=== PATIENT | female | born 1970 | race Caucasian/White ===

== ENCOUNTER 2016-09-11 15:33 | Emergency (ER) | payer BC ==
--- NOTE | 2016-09-11 16:13 | EDM.PDOC ---
ED HPI Trauma - General Chief Complaint: Upper Extremity Injury/Pain Stated Complaint: BACK AND ARM PAIN Time Seen by Provider: 09/11/16 15:52 Source: Reports: Patient History Limitations: Reports: No limitations - History of Present Illness INITIAL COMMENTS - FREE TEXT/NARRATIVE: Presents reporting a 2 week history of left shoulder pain the patient states that she did not injure her neck but believes she has a pinched nerve in her neck as she gets some zinger pains that shoot down her left arm she characterizes them as stabbing or burning. She states they are not too bad at night when she is laying flat but otherwise during the day they bother her quite a bit. She did see someone at the walk-in clinic and was given Flexeril and diclofenac. She has been seeing a chiropractor with minimal relief but has another appointment tomorrow morning. She has an appointment with her primary care provider on Wednesday, September 14, 2016. Allergies/ADRs: Allergies fluoxetine [From Prozac] Allergy (Verified 09/11/16 15:43) Hives grass pollen Allergy (Verified 09/11/16 15:43) Shortness of Breath weed pollen Allergy (Verified 09/11/16 15:43) Shortness of Breath trees Allergy (Uncoded 09/11/16 15:43) Shortness of Breath Home Medications: Ambulatory Orders Albuterol [IJD: Ventolin HFA] 2 puff INH .TWICE DAILY PRN 07/15/16 [Confirmed ] Azelastine HCl [Astepro] 2 inhalation RHIANNON BID 07/15/16 [Confirmed 09/11/16] Budesonide/Formoterol Fumarate [Symbicort 160-4.5 Mcg Inhaler] 2 puff IH BID 07/31 [Confirmed 09/11/16] Cetirizine HCl [Zyrtec] 10 mg PO DAILY 07/15/16 [Confirmed 09/11/16] Montelukast [Singulair] 10 mg PO BEDTIME 07/15/16 [Confirmed 09/11/16] Cyclobenzaprine [Flexeril] 10 mg PO TID 09/11/16 [Confirmed 09/11/16] Diclofenac Sodium [IJD: Diclofenac Sodium] 75 mg PO BID 09/11/16 [Confirmed ] Past Medical History HEENT History: Reports: Allergic rhinitis, Other (see below) Other HEENT History: Rhinitis Cardiovascular History: Reports: None Respiratory History: Reports: Asthma, Bronchitis, recurrent, Sleep apnea Gastrointestinal History: Reports: None Genitourinary History: Reports: None 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 Musculoskeletal History: Reports: None Neurological History: Reports: Head trauma Psychiatric History: Reports: Depression Endocrine/Metabolic History: Reports: Obesity/BMI 30+ Hematologic History: Reports: None Immunologic History: Reports: None Oncologic (Cancer) History: Reports: None Dermatologic History: Reports: None - Infectious Disease History Infectious Disease History: Reports: None - Past Surgical History Head Surgeries/Procedures: Reports: None HEENT Surgical History: Reports: Tonsillectomy Social & Family History - Family History Cardiac: Reports: CAD, [place] Endocrine/Metabolic: Reports: Diabetes, type II - Tobacco Use Smoking Status *Q: Never Smoker Years of Tobacco use: 15 Packs/Tins Daily: 0.5 Used Tobacco, but Quit: No Second Hand Smoke Exposure: No - Caffeine Use Caffeine Use: Reports: Coffee - Recreational Drug Use Recreational Drug Use: No Review of Systems - Review of Systems Review Of Systems: ROS reveals no pertinent complaints other than HPI. Trauma Exam - Physical Exam Exam: See Below General Appearance: Reports: alert, moderate distress (tearful due to shooting pains) Head: Reports: atraumatic, normocephalic Ears: Reports: normal external exam Nose: Reports: normal inspection Throat/Mouth: Reports: Normal inspection Neck: Reports: tender midline (Mild from C4-C5), other (Full range of motion without hesitation or limitation). Denies: painful range of motion, paraspinous muscle tender, stiff neck Respiratory Exam: Reports: no respiratory distress, lungs clear, normal breath sounds Cardiovascular: Reports: regular rate, rhythm, no murmur Back: Reports: full range of motion Extremities: Reports: no evidence of injury, normal range of motion, other ( Left shoulder, elbow and hand with full range of motion without hesitation or limitation. Shoulder without erythema, swelling, tenderness. CMS intact distally.) Neurologic: Reports: no motor/sensory deficits Skin: Reports: Normal color, Warm/dry Course - Vital Signs Last Recorded V/S: Last Vital Signs Temp 36.9 C 09/11/16 15:45 Pulse 98 09/11/16 15:45 Resp 18 09/11/16 15:45 BP 154/93 H 09/11/16 15:45 Pulse Ox 99 09/11/16 15:45 Departure - Departure Time of Disposition: 16:13 Disposition: Home, Self-Care 01 Condition: fair Clinical Impression: Radicular pain in left arm Forms: ED Department Discharge Additional Instructions: 1. followup with Dr. Patrick as previously scheduled on Saturday 2. warm or cool packs to the neck whichever feels better every 3-4 hours 3. Percocet every 4-6 hours as needed for pain. Do not drive or operate machinery with this medication 4. Valium 10 mg one at bedtime for relaxation and sleep. Do not take with Percocet. Do not drive or operate machinery with this medication 5. You may continue taking the cyclobenzaprine, which is a muscle relaxant, as previously prescribed. He may supplement the Percocet with diclofenac 3 times daily as previously prescribed.
== END 2016-09-11 16:32 | disposition home or self-care (01) ==
LOC: MW.ED 15:33
CPT/HCPCS: 93005; 99283

== ENCOUNTER → 2016-10-01 | Outpatient (CLI) | payer BC ==
[~2016-10-01] MED LIST: Gadobutrol 10 mMOL/10 ML SDV IVPUSH STA
--- NOTE | 2016-10-02 15:16 | MR ---
EXAM DATE: 10/01/16 PATIENT'S AGE: 45 Patient: BAKARI ASHLEY Facility: [place], [place] Site . Site : 1970 Study: MRI Spine Cervical [id number] 5:46:56 PM Ordering Physician: Finesse Castillo Final Report: INDICATION: Pain. Technique: Multiplanar multi sequence MR imaging of the cervical spine was performed with and without intravenous contrast. Comparison: None. Findings: Cervical vertebral bodies appear maintained in height and alignment. Reactive endplate changes are prominent at C6-7. Cervical spinal cord signal and caliber appears within normal limits. No abnormal spinal cord enhancement is seen. The craniovertebral junction is unremarkable. C2-3: An asymmetric left subarticular disk osteophyte complex is present without significant canal stenosis. There is mild left foraminal narrowing. C3-4: There is uncovertebral joint spurring without significant canal or foraminal narrowing. C4-5: A posterior disc osteophyte complex asymmetric to the left is present without significant canal stenosis. There is mild/moderate left foraminal narrowing. C5-6: A posterior disc osteophyte complex slightly asymmetric to the left contributes to mild canal stenosis, mild right foraminal narrowing and moderate left foraminal narrowing. C6-7: A posterior disc osteophyte complex asymmetric to the left contributes to moderate canal stenosis, mild right foraminal narrowing and moderate/severe left foraminal narrowing. C7-T1: A small posterior disc bulge is seen without significant canal or foraminal narrowing. Impression : 1. Multilevel degenerative changes are most pronounced at C5-6 and C6-7. 2. At C5-6, there is mild canal stenosis, mild right foraminal narrowing and moderate left foraminal narrowing. 3. At C6-7, there is moderate canal stenosis, mild right foraminal narrowing and moderate/severe left foraminal narrowing. 4. Cervical spinal cord signal and caliber appears within normal limits. Dictated by Deven Pinzon MD @ Oct 02 2016 10:48AM (Electronic Signature) Report Signed by Proxy and Original Signed Document filed in the Medical Record. ALYSSA
== END ==
LOC: MW.MRI 15:45
PROVIDERS: ATTEND Nurse Practitioner Adult Health
DX: M54.9 Dorsalgia, unspecified (principal); M48.02 Spinal stenosis, cervical region; R20.2 Paresthesia of skin
CPT/HCPCS: 72156; A9585

== ENCOUNTER 2017-02-14 18:29 | Observation (INO) | payer BC ==
[2017-02-14] MEDS ORDERED: Aspirin 81 MG Tab.Chew PO ONE (18:36)
[2017-02-14] MEDS ORDERED: Famotidine 20 MG/2 ML SDV IVPUSH ONE (18:36)
[2017-02-14] MEDS ORDERED: Ketorolac 30 MG/ML SDV IVPUSH ONE (18:36)
[2017-02-14] MEDS ORDERED: Sodium Chloride 0.9% 10 ML Syringe FLUSH PRN (18:36)
[2017-02-14] MEDS ORDERED: Sodium Chloride 0.9% 2.5 ML Syringe FLUSH PRN (18:36)
[2017-02-14] MEDS ORDERED: Alum Hydrox/Mag Hydrox/Simeth 15 ML, Metoclopramide 5 MG, Lidocaine 2% 5 ML PO ONE ×3 (18:36)
[2017-02-14] MEDS ORDERED: Nitroglycerin 2% Oint 1 GM UD Packet TOP ONE (18:36)
[2017-02-14 19:28] LABS: CHLORIDE,CL 106 mmol/L (98-110); SODIUM,NA 141 mmol/L (136-146)
--- NOTE | 2017-02-14 20:10 | EDM.PDOC ---
ED HPI GENERAL MEDICAL PROBLEM - General Chief Complaint: Chest Pain Stated Complaint: HBP/CHEST PAIN Time Seen by Provider: 02/14/17 18:50 Source of Information: Reports: Patient History Limitations: Reports: No Limitations - History of Present Illness INITIAL COMMENTS - FREE TEXT/NARRATIVE: History of present illness: [46-year-old female comes in complaining of chest pain intermittently getting worse over the course of the day. Patient indicates she had a transient episode of hypertension that was found when she went to a urgent care if you weeks ago she subsequently got home And has been taking her blood pressure and she is quite hypertensive 160s over 80s to 100s patient denies any radiation of pain and for nausea vomiting.] Review of systems: As per history of present illness and below otherwise all systems reviewed and negative. Past medical history: As per history of present illness and as reviewed below otherwise noncontributory. Surgical history: As per history of present illness and as reviewed below otherwise noncontributory. Social history: No reported history of drug or alcohol abuse. Family history: As per history of present illness and as reviewed below otherwise noncontributory. Physical exam: HEENT: Atraumatic, normocephalic, pupils reactive, negative for conjunctival pallor or scleral icterus, mucous membranes moist, throat clear, neck supple, nontender, trachea midline. Lungs: Clear to auscultation, breath sounds equal bilaterally, chest nontender. Heart: S1S2, regular, negative for clicks, rubs, or JVD. Abdomen: Soft, nondistended, nontender. Negative for masses or hepatosplenomegaly. Negative for costovertebral tenderness. Pelvis: Stable nontender. Genitourinary: Deferred. Rectal: Deferred. Extremities: Atraumatic, negative for cords or calf pain. Neurovascular unremarkable. Neuro: Awake, alert, oriented. Cranial nerves II through XII unremarkable. Cerebellum unremarkable. Motor and sensory unremarkable throughout. Exam nonfocal. Patient responded to nitroglycerin with cessation of chest pain as well as decreased blood pressure. Spoke with Dr. cardenas about admitting to observation status secondary to risk categories of numerous family members from cardiac sequelae a demise, and new onset hypertension that is symptomatic Diagnostics: [CBC, CMP, troponin, chest x-ray] Therapeutics: [Chest pain protocol] Impression: [Atypical chest pain, hypertension] Plan: [Admit to obs] Definitive disposition and diagnosis as appropriate pending reevaluation and review of above. Middle Chest Pain Score (Numeric/FACES): 9 - Related Data Allergies Allergy/AdvReac Type Severity Reaction Status Date / Time fluoxetine [From Prozac] Allergy Hives Verified 09/11/16 15:43 grass pollen Allergy Shortness Verified 09/11/16 15:43 of Breath weed pollen Allergy Shortness Verified 09/11/16 15:43 of Breath trees Allergy Shortness Uncoded 09/11/16 15:43 of Breath Home Meds: Home Meds Albuterol [IJD: Ventolin HFA] 2 puff INH .TWICE DAILY PRN 07/15/16 [History] Azelastine HCl [Astepro] 2 inhalation RHIANNON BID 07/15/16 [History] Budesonide/Formoterol Fumarate [Symbicort 160-4.5 Mcg Inhaler] 2 puff IH BID 07/31 [History] Cetirizine HCl [Zyrtec] 10 mg PO DAILY 07/15/16 [History] Montelukast [Singulair] 10 mg PO BEDTIME 07/15/16 [History] Allergy Shot WEEKLY 02/14/17 [History] Esomeprazole [NexIUM] 40 mg DAILY 02/14/17 [History] Past Medical History HEENT History: Reports: Allergic Rhinitis, Other (See Below) Other HEENT History: Rhinitis Cardiovascular History: Reports: None Respiratory History: Reports: Asthma, Bronchitis, Recurrent, Sleep Apnea Gastrointestinal History: Reports: None Genitourinary History: Reports: None 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 Musculoskeletal History: Reports: None Neurological History: Reports: Head Trauma Psychiatric History: Reports: Depression Endocrine/Metabolic History: Reports: Obesity/BMI 30+ Hematologic History: Reports: None Immunologic History: Reports: None Oncologic (Cancer) History: Reports: None Dermatologic History: Reports: None - Infectious Disease History Infectious Disease History: Reports: Chicken Pox - Past Surgical History Head Surgeries/Procedures: Reports: None Social & Family History - Family History Cardiac: Reports: CAD, [place] Endocrine/Metabolic: Reports: None - Tobacco Use Smoking Status *Q: Never Smoker Years of Tobacco use: 15 Packs/Tins Daily: 0.5 Used Tobacco, but Quit: No Second Hand Smoke Exposure: No - Caffeine Use Caffeine Use: Reports: Coffee - Recreational Drug Use Recreational Drug Use: No ED ROS GENERAL - Review of Systems Review Of Systems: See Below (See history of present illness) ED EXAM, GENERAL - Physical Exam Exam: See Below (See history of present illness) Course - Vital Signs Last Recorded V/S: Last Vital Signs Temp 36.6 C 02/14/17 18:41 Pulse 81 02/14/17 21:00 Resp 16 02/14/17 21:00 BP 135/51 L 02/14/17 21:00 Pulse Ox 96 02/14/17 21:00 - Orders/Labs/Meds Orders: Active Orders 24 hr Category Date Time Status Cardiac Monitoring [RC] . DIRECTED Care 02/14/17 18:36 Active EKG Documentation Completion [RC] STAT Care 02/14/17 18:37 Active Chest 1V Frontal [CR] Stat Exams 02/14/17 18:36 Taken Sodium Chloride 0.9% [Saline Flush] Med 02/14/17 18:36 Active 10 ml FLUSH ASDIRECTED PRN Sodium Chloride 0.9% [Saline Flush] Med 02/14/17 18:36 Active 2.5 ml FLUSH ASDIRECTED PRN Saline Lock Insert [OM.PC] Stat Oth 02/14/17 18:36 Ordered Medication Orders Sodium Chloride (Saline Flush) 10 ml FLUSH ASDIRECTED PRN PRN Reason: Keep Vein Open Last Admin: 02/14/17 19:05 Dose: 10 ml Sodium Chloride (Saline Flush) 2.5 ml FLUSH ASDIRECTED PRN PRN Reason: Keep Vein Open Last Admin: 02/14/17 19:05 Dose: 2.5 ml Labs: Laboratory Tests 02/14/17 02/14/17 02/14/17 Range/Units 18:57 18:57 18:57 WBC 6.60 (4.0-11.0) K/uL RBC 4.82 (4.30-5.90) M/uL Hgb 13.2 (12.0-16.0) g/dL Hct 39.9 (36.0-46.0) % MCV 82.8 (80.0-98.0) fL MCH 27.4 (27.0-32.0) pg MCHC 33.1 (31.0-37.0) g/dL RDW Std Deviation 43.6 (28.0-62.0) fl RDW Coeff of Arie 14 (11.0-15.0) % Plt Count 220 (150-400) K/uL MPV 10.10 (7.40-12.00) fL Neut % (Auto) 54.6 (48.0-80.0) % Lymph % (Auto) 33.8 (16.0-40.0) % [place] % (Auto) 8.5 (0.0-15.0) % Eos % (Auto) 2.6 (0.0-7.0) % Baso % (Auto) 0.5 (0.0-1.5) % Neut # (Auto) 3.6 (1.4-5.7) K/uL Lymph # (Auto) 2.2 (0.6-2.4) K/uL Gaston # (Auto) 0.6 (0.0-0.8) K/uL Eos # (Auto) 0.2 (0.0-0.7) K/uL Baso # (Auto) 0.0 (0.0-0.1) K/uL Nucleated RBC % 0.0 /100WBC Nucleated RBCs # 0 K/uL Sodium 141 (136-146) mmol/L Potassium 3.6 (3.5-5.1) mmol/L Chloride 106 (98-110) mmol/L Carbon Dioxide 25 (21-31) mmol/L BUN 14 (6.0-23.0) mg/dL Creatinine 0.8 (0.6-1.5) mg/dL Est Cr Clr Drug Dosing 81.38 mL/min Estimated GFR (MDRD) > 60.0 ml/min Glucose 101 (60-110) mg/dL Calcium 9.4 (8.8-10.8) mg/dL Total Bilirubin 0.4 (0.1-1.5) mg/dL AST 16 (5-40) IU/L ALT 21 (8-54) IU/L Alkaline Phosphatase 72 (40-150) Troponin I < 0.10 (0.0-0.29) NG/ML Total Protein 7.0 (6.0-8.0) g/dL Albumin 3.8 (3.5-5.0) g/dL Globulin 3.2 (2.0-3.5) g/dL Albumin/Globulin Ratio 1.2 L (1.3-2.8) Amylase 59 (10-90) U/L Lipase 18 (7-80) U/L Urine Color Urine Appearance Urine pH (5.0-8.0) Ur Specific [place] (1.001-1.035) Urine Protein (NEGATIVE) mg/dL Urine Glucose (UA) (NEGATIVE) mg/dL Urine Ketones (NEGATIVE) mg/dL Urine Occult Blood (NEGATIVE) Urine Nitrite (NEGATIVE) Urine Bilirubin (NEGATIVE) Urine Urobilinogen (<2.0) EU/dL Ur Leukocyte Esterase (NEGATIVE) Urine RBC (0-2/HPF) Urine WBC (0-5/HPF) Ur Epithelial Cells (NONE-FEW) Urine Bacteria (NEGATIVE) Urine HCG, Qual (NEGATIVE) 02/14/17 02/14/17 Range/Units 19:54 19:54 WBC (4.0-11.0) K/uL RBC (4.30-5.90) M/uL Hgb (12.0-16.0) g/dL Hct (36.0-46.0) % MCV (80.0-98.0) fL MCH (27.0-32.0) pg MCHC (31.0-37.0) g/dL RDW Std Deviation (28.0-62.0) fl RDW Coeff of Arie (11.0-15.0) % Plt Count (150-400) K/uL MPV (7.40-12.00) fL Neut % (Auto) (48.0-80.0) % Lymph % (Auto) (16.0-40.0) % [place] % (Auto) (0.0-15.0) % Eos % (Auto) (0.0-7.0) % Baso % (Auto) (0.0-1.5) % Neut # (Auto) (1.4-5.7) K/uL Lymph # (Auto) (0.6-2.4) K/uL [place]aston # (Auto) (0.0-0.8) K/uL Eos # (Auto) (0.0-0.7) K/uL Baso # (Auto) (0.0-0.1) K/uL Nucleated RBC % /100WBC Nucleated RBCs # K/uL Sodium (136-146) mmol/L Potassium (3.5-5.1) mmol/L Chloride (98-110) mmol/L Carbon Dioxide (21-31) mmol/L BUN (6.0-23.0) mg/dL Creatinine (0.6-1.5) mg/dL Est Cr Clr Drug Dosing mL/min Estimated GFR (MDRD) ml/min Glucose (60-110) mg/dL Calcium (8.8-10.8) mg/dL Total Bilirubin (0.1-1.5) mg/dL AST (5-40) IU/L ALT (8-54) IU/L Alkaline Phosphatase (40-150) Troponin I (0.0-0.29) NG/ML Total Protein (6.0-8.0) g/dL Albumin (3.5-5.0) g/dL Globulin (2.0-3.5) g/dL Albumin/Globulin Ratio (1.3-2.8) Amylase (10-90) U/L Lipase (7-80) U/L Urine Color YELLOW Urine Appearance CLEAR Urine pH 6.0 (5.0-8.0) Ur Specific [place] 1.025 (1.001-1.035) Urine Protein NEGATIVE (NEGATIVE) mg/dL Urine Glucose (UA) NEGATIVE (NEGATIVE) mg/dL Urine Ketones NEGATIVE (NEGATIVE) mg/dL Urine Occult Blood LARGE H (NEGATIVE) Urine Nitrite NEGATIVE (NEGATIVE) Urine Bilirubin NEGATIVE (NEGATIVE) Urine Urobilinogen 0.2 (<2.0) EU/dL Ur Leukocyte Esterase TRACE (NEGATIVE) Urine RBC 15-20 (0-2/HPF) Urine WBC 3-6 (0-5/HPF) Ur Epithelial Cells FEW (NONE-FEW) Urine Bacteria FEW (NEGATIVE) Urine HCG, Qual NEGATIVE (NEGATIVE) Meds: Medications Generic Name Dose Route Start Last Admin Trade Name Freq PRN Reason Stop Dose Admin Sodium Chloride 10 ml 02/14/17 18:36 02/14/17 19:05 Saline Flush FLUSH 10 ml ASDIRECTED PRN Administration Keep Vein Open Sodium Chloride 2.5 ml 02/14/17 18:36 02/14/17 19:05 Saline Flush FLUSH 2.5 ml ASDIRECTED PRN Administration Keep Vein Open Discontinued Medications Generic Name Dose Route Start Last Admin Trade Name Freq PRN Reason Stop Dose Admin Aspirin 324 mg 02/14/17 18:36 02/14/17 19:02 Aspirin PO 02/14/17 18:37 324 mg ONETIME ONE Administration Al Hydroxide/Mg Hydroxide 15 0 ml 02/14/17 18:36 02/14/17 19:02 ml/ Metoclopramide HCl 5 mg/ PO 02/14/17 18:37 1 each Lidocaine HCl 5 ml ONETIME ONE Administration Famotidine 20 mg 02/14/17 18:36 02/14/17 19:04 Pepcid IVPUSH 02/14/17 18:37 20 mg ONETIME ONE Administration Ketorolac Tromethamine 30 mg 02/14/17 18:36 02/14/17 19:04 Toradol IVPUSH 02/14/17 18:37 30 mg ONETIME ONE Administration Nitroglycerin 0.5 gm 02/14/17 18:36 02/14/17 19:03 Nitro-Bid 2% TOP 02/14/17 18:37 0.5 gm ONETIME ONE Administration Departure - Departure Time of Disposition: 21:03 Disposition: Refer to Observation Condition: Good Clinical Impression: Atypical chest pain Forms: ED Department Discharge - My Orders Last 24 Hours: My Active Orders 02/14/17 18:36 Cardiac Monitoring [RC] . DIRECTED Chest 1V Frontal [CR] Stat Sodium Chloride 0.9% [Saline Flush] 10 ml FLUSH ASDIRECTED PRN Sodium Chloride 0.9% [Saline Flush] 2.5 ml FLUSH ASDIRECTED PRN Saline Lock Insert [OM.PC] Stat 02/14/17 18:37 EKG Documentation Completion [RC] STAT - Assessment/Plan Last 24 Hours: My Active Orders 02/14/17 18:36 Cardiac Monitoring [RC] . DIRECTED Chest 1V Frontal [CR] Stat Sodium Chloride 0.9% [Saline Flush] 10 ml FLUSH ASDIRECTED PRN Sodium Chloride 0.9% [Saline Flush] 2.5 ml FLUSH ASDIRECTED PRN Saline Lock Insert [OM.PC] Stat 02/14/17 18:37 EKG Documentation Completion [RC] STAT
[2017-02-14] MEDS ORDERED: Aluminum Hydroxide/Magnesium Hydroxide/Simethicone Susp 30 ML Cup PO PRN (22:44)
[2017-02-14] MEDS ORDERED: Acetaminophen 325 MG Tab PO PRN (22:44)
[2017-02-14] MEDS ORDERED: Magnesium Hydroxide 400 MG/5 ML Susp 30 ML Cup PO PRN (22:44)
[2017-02-14] MEDS ORDERED: Albuterol 6.7 GM Inhaler INH PRN (23:03)
[2017-02-14] MEDS ORDERED: Nitroglycerin 0.4 MG Tab.SL SL PRN (23:05)
--- NOTE | 2017-02-14 23:15 | PCM.HP ---
H&P History of Present Illness - General Date of Service: 02/14/17 Admit Problem/Dx: Admission Diagnosis/Problem Admission Diagnosis/Problem Chest pain Source of Information: Patient, RN Notes Reviewed History Limitations: Reports: No Limitations - History of Present Illness Initial Comments - Free Text/Narative: 46 year old female with history of her father and grandfather having heart disease, had onset of several episodes of chest pain today. The pain was not provoked by activity. When one episode last ed longer, she came to the ER for evaluation. She has a history of GERD and a history of asthma. She was seen earlier this week at [facility] and was found to be hypertensive and was told to follow up with her usual Doctor, Dr. Patrick, who did not have immediate openings in his schedule this week. Her BP at that visit was approx 160/100. She has not been on hypertensive medication. She was given nitroglycerin and her chest pain and hypertension improved. She was referred to observation for follow up of the chest pain and hypertension, especially given her family history. Onset of Symptoms: Reports: Today Duration of Symptoms: Reports: Recurring Location: Reports: Chest Quality: Reports: Pressure Severity: Moderate Improves with: Reports: Medication Worsens with: Reports: None Associated Symptoms: Reports: Chest Pain. Denies: Cough, Diaphoresis, Nausea/ Vomiting Middle Chest Pain Score (Numeric/FACES): 0 - Related Data Allergies/Adverse Reactions: Allergies Allergy/AdvReac Type Severity Reaction Status Date / Time fluoxetine [From Prozac] Allergy Hives Verified 09/11/16 15:43 grass pollen Allergy Shortness Verified 09/11/16 15:43 of Breath weed pollen Allergy Shortness Verified 09/11/16 15:43 of Breath trees Allergy Shortness Uncoded 09/11/16 15:43 of Breath Home Medications: Home Meds Albuterol [IJD: Ventolin HFA] 2 puff INH Q4H PRN 07/15/16 [History] Azelastine HCl [Astepro] 2 inhalation RHIANNON BID 07/15/16 [History] Budesonide/Formoterol Fumarate [Symbicort 160-4.5 Mcg Inhaler] 2 puff IH BID 07/31 [History] Cetirizine HCl [Zyrtec] 10 mg PO BEDTIME 07/15/16 [History] Montelukast [Singulair] 10 mg PO BEDTIME 07/15/16 [History] Allergy Shot WEEKLY 02/14/17 [History] Esomeprazole [NexIUM] 40 mg DAILY 02/14/17 [History] Fluticasone Propionate [Flonase] 1 spr NASBOTH BID 02/14/17 [History] Past Medical History HEENT History: Reports: Allergic Rhinitis, Other (See Below) Other HEENT History: Rhinitis Cardiovascular History: Reports: None Respiratory History: Reports: Asthma, Bronchitis, Recurrent, Sleep Apnea Gastrointestinal History: Reports: GERD Genitourinary History: Reports: None FILTER CLEANER History: Reports: None Musculoskeletal History: Reports: None Neurological History: Reports: Head Trauma Psychiatric History: Reports: Depression Endocrine/Metabolic History: Reports: Obesity/BMI 30+ Hematologic History: Reports: None Immunologic History: Reports: None Oncologic (Cancer) History: Reports: None Dermatologic History: Reports: None - Infectious Disease History Infectious Disease History: Reports: Chicken Pox - Past Surgical History Head Surgeries/Procedures: Reports: None Social & Family History - Family History Cardiac: Reports: CAD, [place] Endocrine/Metabolic: Reports: None - Tobacco Use Smoking Status *Q: Never Smoker Years of Tobacco use: 15 Packs/Tins Daily: 0.5 Used Tobacco, but Quit: No Second Hand Smoke Exposure: No - Caffeine Use Caffeine Use: Reports: Coffee - Recreational Drug Use Recreational Drug Use: No H&P Review of Systems - Review of Systems: Review Of Systems: ROS reveals no pertinent complaints other than HPI. Exam - Exam Exam: See Below - Vital Signs Vital Signs: Last Vital Signs Temp 36.6 C 02/14/17 18:41 Pulse 81 02/14/17 21:00 Resp 16 02/14/17 21:00 BP 135/51 L 02/14/17 21:00 Pulse Ox 96 02/14/17 21:00 Weight: 122.47 kg - Exam Quality Assessment: DVT Prophylaxis General: Alert, Oriented, Cooperative HEENT: Conjunctiva Clear, EACs Clear, EOMI, Hearing Intact, Mucosa Moist & [place] , Nares Patent, Normal Nasal Septum, Posterior Pharynx Clear, Pupils Equal Neck: Supple, Trachea Midline Lungs: Clear to Auscultation, Normal Respiratory Effort Cardiovascular: Regular Rate, Regular Rhythm, Normal S1, Normal S2 GI/Abdominal Exam: Normal Bowel Sounds, Soft, Non-Tender, No Organomegaly, No Distention, No Mass Back Exam: Normal Inspection Extremities: Normal Inspection, Normal Range of Motion, Non-Tender, No Pedal Edema, Normal Capillary Refill. No: Teo's Sign Skin: Warm, Dry, Intact Neurological: Cranial Nerves Intact, Reflexes Equal Bilateral Neuro Extensive - Mental Status: Alert, Oriented x3, Normal Cognition, Memory Intact Neuro Extensive - Motor, Sensory, Reflexes: CN II-XII Intact, Normal Reflexes Psychiatric: Alert, Anxious - Patient Data Result Diagrams: 02/14/17 18:57 02/14/17 18:57 EKG INTERPRETATION Rhythm: NSR *Q Meaningful Use (ADM) - VTE *Q VTE Criteria *Q: - Stroke *Q Stroke Criteria *Q: - AMI *Q AMI Criteria *Q: - Problem List (1) GERD (gastroesophageal reflux disease) SNOMED Code(s): 793167349 ICD Code: K21.9 - GASTRO-ESOPHAGEAL REFLUX DISEASE WITHOUT ESOPHAGITIS Status: Acute Priority: Medium Current Visit: Yes Qualifiers: Esophagitis presence: without esophagitis Qualified Code(s): K21.9 - Gastro -esophageal reflux disease without esophagitis (2) Asthma SNOMED Code(s): 039067154 ICD Code: J45.909 - UNSPECIFIED ASTHMA, UNCOMPLICATED Status: Acute Current Visit: Yes Qualifiers: Asthma severity: moderate persistent Asthma complication type: uncomplicated Qualified Code(s): J45.40 - Moderate persistent asthma, uncomplicated (3) Atypical chest pain SNOMED Code(s): 401808845 ICD Code: R07.89 - OTHER CHEST PAIN Status: Acute Priority: High Current Visit: Yes Onset Date: 02/14/17 Problem List Initiated/Reviewed/Updated: Yes Orders Last 24hrs: Active Orders 24 hr Category Date Time Status Antiembolic Devices [RC] .Routine Care 02/14/17 22:49 Ordered Bedrest Bathroom Privileges [RC] ASDIRECTED Care 02/14/17 22:44 Ordered Communication Order [RC] ROUTINE Care 02/14/17 23:02 Ordered EKG 12 Lead [EKG Documentation Completion] [RC] AM Care 02/14/17 22:55 Ordered Notify Provider Vital Signs [RC] ASDIRECTED Care 02/14/17 22:47 Ordered Oxygen Therapy [RC] PRN Care 02/14/17 22:46 Ordered RT Post Treatment Assessment [RC] Click To Edit Care 02/14/17 23:05 Ordered RT Pre-Treatment Assessment [RC] Click To Edit Care 02/14/17 23:05 Ordered VTE/DVT Education [RC] PER UNIT ROUTINE Care 02/14/17 22:49 Ordered Vital Signs [RC] Q4H Care 02/14/17 22:44 Ordered Heart Healthy Diet [DIET] Diet 02/15/17 Breakfast Ordered BASIC METABOLIC PANEL,BMP [CHEM] AM Lab 02/15/17 05:11 Ordered TROPONIN I [CHEM] AM Lab 02/16/17 05:11 Ordered Acetaminophen [Tylenol] Med 02/14/17 22:44 Ordered 650 mg PO Q4H PRN Albuterol [Proventil HFA] Med 02/14/17 23:03 Ordered 2 gm INH Q4H PRN Alum Hydrox/Mag Hydrox/Simeth [Mag-Al Plus] Med 02/14/17 22:44 Ordered 30 ml PO Q4H PRN Enoxaparin [Lovenox] Med 02/15/17 09:00 Ordered 30 mg SUBCUT DAILY Magnesium Hydroxide [Milk of Magnesia] Med 02/14/17 22:44 Ordered 30 ml PO BID PRN Montelukast [Singulair] Med 02/15/17 09:00 Once 10 mg PO ONETIME ONE Nitroglycerin [Nitrostat] Med 02/14/17 23:05 Ordered 0.4 mg SL Q5M PRN DVT/VTE Prophylaxis Reflex [OM.PC] Routine Oth 02/14/17 22:44 Ordered Resuscitation Status Routine Resus Stat 02/14/17 22:44 Ordered Medication Orders Acetaminophen (Tylenol) 650 mg PO Q4H PRN PRN Reason: analgesia/fever Al Hydroxide/Mg Hydroxide (Mag-Al Plus) 30 ml PO Q4H PRN PRN Reason: Dyspepsia Enoxaparin Sodium (Lovenox) 30 mg SUBCUT DAILY [facility] Magnesium Hydroxide (Milk Of Magnesia) 30 ml PO BID PRN PRN Reason: Constipation Sodium Chloride (Saline Flush) 10 ml FLUSH ASDIRECTED PRN PRN Reason: Keep Vein Open Last Admin: 02/14/17 19:05 Dose: 10 ml Sodium Chloride (Saline Flush) 2.5 ml FLUSH ASDIRECTED PRN PRN Reason: Keep Vein Open Last Admin: 02/14/17 19:05 Dose: 2.5 ml Assessment/Plan Comment:: Patient placed on telemetry and monitor for overnight. Will repeat Troponin and ECG in AM.
[2017-02-15] MEDS ORDERED: Cetirizine 10 MG Tab PO SCH (00:09)
[2017-02-15] MEDS ORDERED: Fluticasone Propionate Nasal Spray 16 GM Bottle NASBOTH SCH (00:15)
[2017-02-15] MEDS ORDERED: FLUTICASONE PROPIONATE NASBOTH ONE (01:30)
[2017-02-15 05:53] LABS: CHLORIDE,CL 108 mmol/L (98-110); SODIUM,NA 142 mmol/L (136-146)
[2017-02-15] MEDS ORDERED: FLUTICASONE PROPIONATE NASBOTH SCH (09:00)
[2017-02-15] MEDS ORDERED: Omeprazole 20 MG Cap.CR PO SCH (09:00)
[2017-02-15] MEDS ORDERED: Enoxaparin 30 MG/0.3 ML Syringe SUBCUT SCH (09:00)
[2017-02-15] MEDS: Montelukast 10 MG Tab PO ONE ×2 (09:28→09:29)
[2017-02-15 11:51] VITALS: BP 145/65
--- NOTE | 2017-02-15 18:32 | CR ---
EXAM DATE: 02/14/17 PATIENT'S AGE: 46 Patient: BAKARI ASHLEY Facility: [place], [place] Site . Site : [id number] Study: XRay Chest [id number]/3/2017 8:15:30 PM Ordering Physician: Doctor Hubbard Final Report: HISTORY: Chest pain. FINDINGS: AP portable chest radiograph demonstrates EKG leads overlying the thorax. The cardiac silhouette is normal. Pulmonary vasculature and janell are normal. No consolidation, pleural effusion or pneumothorax. IMPRESSION: No acute cardiopulmonary disease. Dictated by Sulma Lux MD @ 02/14/2017 8:29:53 PM Dictated by: Sulma Lux MD @ 02/14/2017 20:30:21 (Electronic Signature) Report Signed by Proxy. [facility]
--- NOTE | 2017-02-19 23:27 | PCM.DCSUM1 ---
<Manuel Dutton Z - Last Filed: 02/19/17 23:30> Discharge Summary - Hospital Course Free Text/Narrative:: Discharge Summary Date of admission: 02/14/2017 Date of discharge: 02/15/2017 Admitting diagnosis: #1. Gastroesophageal reflux disease #2. Atypical chest pain #3. Asthma Discharge diagnoses: #1. Atypical chest pain requiring chemical stress test outpatient #2. Asthma now resolved #3. Gastroesophageal reflux disease Consultations: None Procedures: None Hospitalization course: She was admitted secondary to atypical chest pain that presented. Patient has a strong family history of cardiovascular disease along with a history of hypertension. As a result the patient was admitted for ACS rule out. EKG did not show any further findings as well the patient did not have any elevated troponins 3. However based on her obesity strong family history past medical history of hypertension and hyperlipidemia the decision was made after tropes were negative 3 for the patient to have a stress test chemically induced in an outpatient setting. Disposition on discharge: Patient was sent home Condition on discharge: Patient was stable no longer having chest pain no palpitations or tachycardia no tachypnea afebrile troponins 3 negative ACS ruled out Discharge medications: Sublingual nitroglycerin and continuation of the rest of her home medication Follow-up instructions: Patient is to follow-up with Dr. Dutton at the medical [facility] as well as follow-up with outpatient chemical stress test Instructions on discharge: Patient was told that if she had any further chest pain any febrile issues any heart palpitations and he referred chest pain that was going down the arm any episodes of dyspnea or syncope she is to either call her primary care physician or me to come to the ER - Discharge Data Discharge Date: 02/15/17 Discharge Disposition: Home, Self-Care 01 Condition: Good - Discharge Diagnosis/Problem(s) (1) Atypical chest pain SNOMED Code(s): 783754780 ICD Code: R07.89 - OTHER CHEST PAIN Status: Acute Priority: High Onset Date: 02/14/17 - Patient Instructions Diet: Heart Healthy Diet Activity: As Tolerated Driving: May Drive Today Showering/Bathing: May Shower Notify Provider of: Fever, Increased Pain, Swelling and Redness, Nausea and/or Vomiting - Discharge Plan Prescriptions/Med Rec: Nitroglycerin [Nitrostat] 0.3 mg SL ASDIRECTED PRN #10 tab.subl PRN Reason: Chest Pain Omeprazole 20 mg PO DAILY #30 cap.cr Home Medications: Home Meds Albuterol [IJD: Ventolin HFA] 2 puff INH Q4H PRN 07/15/16 [History] Azelastine HCl [Astepro] 2 inhalation RHIANNON BID 07/15/16 [History] Budesonide/Formoterol Fumarate [Symbicort 160-4.5 Mcg Inhaler] 2 puff IH BID 07/31 [History] Cetirizine HCl [Zyrtec] 10 mg PO BEDTIME 07/15/16 [History] Montelukast [Singulair] 10 mg PO BEDTIME 07/15/16 [History] Allergy Shot WEEKLY 02/14/17 [History] Esomeprazole [NexIUM] 40 mg DAILY 02/14/17 [History] Fluticasone Propionate [Flonase] 1 spr NASBOTH BID 02/14/17 [History] Nitroglycerin [Nitrostat] 0.3 mg SL ASDIRECTED PRN #10 tab.subl 02/15/17 [Rx] Omeprazole 20 mg PO DAILY #30 cap.cr 02/15/17 [Rx] Patient Handouts: Nonspecific Chest Pain, [id number], Nitroglycerin sublingual tablets, Omeprazole capsules (sprinkle caps) - Rx Referrals: [facility] [Outside] Bo Patrick MD [Primary Care Provider] - 03/06/17 11:45 am - Discharge Summary/Plan Comment DC Time >30 min.: No - Patient Data Vitals - Most Recent: Last Vital Signs Temp 36.0 C 02/15/17 11:49 Pulse 73 02/15/17 11:49 Resp 20 02/15/17 11:49 BP 145/65 H 02/15/17 11:49 Pulse Ox 97 02/15/17 11:49 Weight - Most Recent: 122.47 kg Med Orders - Current: Current Medications Discontinued Medications Acetaminophen (Tylenol) 650 mg PO Q4H PRN PRN Reason: analgesia/fever Last Admin: 02/15/17 01:05 Dose: 650 mg Al Hydroxide/Mg Hydroxide (Mag-Al Plus) 30 ml PO Q4H PRN PRN Reason: Dyspepsia Albuterol (Proventil Hfa) 0 gm INH Q4H PRN PRN Reason: Shortness of Breath Aspirin (Aspirin) 324 mg PO ONETIME ONE Stop: 02/14/17 18:37 Last Admin: 02/14/17 19:02 Dose: 324 mg Cetirizine HCl (Zyrtec) 10 mg PO BEDTIME [facility] Last Admin: 02/15/17 00:50 Dose: 10 mg Al Hydroxide/Mg Hydroxide 15 ml/ Metoclopramide HCl 5 mg/Lidocaine HCl 5 ml 0 ml PO ONETIME ONE Stop: 02/14/17 18:37 Last Admin: 02/14/17 19:02 Dose: 1 each Enoxaparin Sodium (Lovenox) 30 mg SUBCUT DAILY [facility] Last Admin: 02/15/17 10:42 Dose: Not Given Famotidine (Pepcid) 20 mg IVPUSH ONETIME ONE Stop: 02/14/17 18:37 Last Admin: 02/14/17 19:04 Dose: 20 mg Fluticasone Propionate (Flonase) 0 gm NASBOTH BID [facility] Last Admin: 02/15/17 05:55 Dose: Not Given Fluticasone Propionate (Flonase) 0 gm NASBOTH BID [facility] Last Admin: 02/15/17 09:13 Dose: 1 spray Fluticasone Propionate (Flonase) 0 gm NASBOTH ONETIME ONE Stop: 02/15/17 01:31 Last Admin: 02/15/17 01:31 Dose: 1 spray Ketorolac Tromethamine (Toradol) 30 mg IVPUSH ONETIME ONE Stop: 02/14/17 18:37 Last Admin: 02/14/17 19:04 Dose: 30 mg Magnesium Hydroxide (Milk Of Magnesia) 30 ml PO BID PRN PRN Reason: Constipation Montelukast Sodium (Singulair) 10 mg PO ONETIME ONE Stop: 02/15/17 09:01 Last Admin: 02/15/17 09:29 Dose: Not Given Nitroglycerin (Nitro-Bid 2%) 0.5 gm TOP ONETIME ONE Stop: 02/14/17 18:37 Last Admin: 02/14/17 19:03 Dose: 0.5 gm Nitroglycerin (Nitrostat) 0.4 mg SL Q5M PRN PRN Reason: Chest Pain Stop: 02/14/17 23:16 (Azelastine Hcl [ Astepro] 2 Inhalation)Own Med 2 inhalation RHIANNON BID [facility] Last Admin: 02/15/17 09:11 Dose: 2 inhalation (Azelastine Hcl [ Astepro] 2 Inhalation)Own Med 2 inhalation RHIANNON ONETIME ONE Stop: 02/15/17 01:31 Last Admin: 02/15/17 05:43 Dose: Not Given Omeprazole (Omeprazole) 20 mg PO DAILY [facility] Last Admin: 02/15/17 09:09 Dose: 20 mg (Azelastine Hcl [ Astepro] 2 Inhalation)Own Med 2 each RHIANNON BID [facility] Sodium Chloride (Saline Flush) 10 ml FLUSH ASDIRECTED PRN PRN Reason: Keep Vein Open Last Admin: 02/14/17 19:05 Dose: 10 ml Sodium Chloride (Saline Flush) 2.5 ml FLUSH ASDIRECTED PRN PRN Reason: Keep Vein Open Last Admin: 02/14/17 19:05 Dose: 2.5 ml *Q Meaningful Use (DIS) - VTE *Q VTE Criteria *Q: - Stroke *Q Stroke Criteria *Q: - AMI *Q AMI Criteria *Q: <Randolph Kingtis - Last Filed: 02/20/17 08:05> Discharge Summary - Discharge Diagnosis/Problem(s) (1) GERD (gastroesophageal reflux disease) SNOMED Code(s): 156087529 ICD Code: K21.9 - GASTRO-ESOPHAGEAL REFLUX DISEASE WITHOUT ESOPHAGITIS Status: Acute Priority: Medium Qualifiers: Esophagitis presence: without esophagitis Qualified Code(s): K21.9 - Gastro -esophageal reflux disease without esophagitis (2) Asthma SNOMED Code(s): 862371818 ICD Code: J45.909 - UNSPECIFIED ASTHMA, UNCOMPLICATED Status: Acute Qualifiers: Asthma severity: moderate persistent Asthma complication type: uncomplicated Qualified Code(s): J45.40 - Moderate persistent asthma, uncomplicated (3) Atypical chest pain SNOMED Code(s): 232362643 ICD Code: R07.89 - OTHER CHEST PAIN Status: Acute Priority: High Onset Date: 02/14/17 - Patient Data Vitals - Most Recent: Last Vital Signs Temp 36.0 C 02/15/17 11:49 Pulse 73 02/15/17 11:49 Resp 20 02/15/17 11:49 BP 145/65 H 02/15/17 11:49 Pulse Ox 97 02/15/17 11:49 Med Orders - Current: Current Medications Discontinued Medications Acetaminophen (Tylenol) 650 mg PO Q4H PRN PRN Reason: analgesia/fever Last Admin: 02/15/17 01:05 Dose: 650 mg Al Hydroxide/Mg Hydroxide (Mag-Al Plus) 30 ml PO Q4H PRN PRN Reason: Dyspepsia Albuterol (Proventil Hfa) 0 gm INH Q4H PRN PRN Reason: Shortness of Breath Aspirin (Aspirin) 324 mg PO ONETIME ONE Stop: 02/14/17 18:37 Last Admin: 02/14/17 19:02 Dose: 324 mg Cetirizine HCl (Zyrtec) 10 mg PO BEDTIME [facility] Last Admin: 02/15/17 00:50 Dose: 10 mg Al Hydroxide/Mg Hydroxide 15 ml/ Metoclopramide HCl 5 mg/Lidocaine HCl 5 ml 0 ml PO ONETIME ONE Stop: 02/14/17 18:37 Last Admin: 02/14/17 19:02 Dose: 1 each Enoxaparin Sodium (Lovenox) 30 mg SUBCUT DAILY [facility] Last Admin: 02/15/17 10:42 Dose: Not Given Famotidine (Pepcid) 20 mg IVPUSH ONETIME ONE Stop: 02/14/17 18:37 Last Admin: 02/14/17 19:04 Dose: 20 mg Fluticasone Propionate (Flonase) 0 gm NASBOTH BID [facility] Last Admin: 02/15/17 05:55 Dose: Not Given Fluticasone Propionate (Flonase) 0 gm NASBOTH BID [facility] Last Admin: 02/15/17 09:13 Dose: 1 spray Fluticasone Propionate (Flonase) 0 gm NASBOTH ONETIME ONE Stop: 02/15/17 01:31 Last Admin: 02/15/17 01:31 Dose: 1 spray Ketorolac Tromethamine (Toradol) 30 mg IVPUSH ONETIME ONE Stop: 02/14/17 18:37 Last Admin: 02/14/17 19:04 Dose: 30 mg Magnesium Hydroxide (Milk Of Magnesia) 30 ml PO BID PRN PRN Reason: Constipation Montelukast Sodium (Singulair) 10 mg PO ONETIME ONE Stop: 02/15/17 09:01 Last Admin: 02/15/17 09:29 Dose: Not Given Nitroglycerin (Nitro-Bid 2%) 0.5 gm TOP ONETIME ONE Stop: 02/14/17 18:37 Last Admin: 02/14/17 19:03 Dose: 0.5 gm Nitroglycerin (Nitrostat) 0.4 mg SL Q5M PRN PRN Reason: Chest Pain Stop: 02/14/17 23:16 (Azelastine Hcl [ Astepro] 2 Inhalation)Own Med 2 inhalation RHIANNON BID [facility] Last Admin: 02/15/17 09:11 Dose: 2 inhalation (Azelastine Hcl [ Astepro] 2 Inhalation)Own Med 2 inhalation RHIANNON ONETIME ONE Stop: 02/15/17 01:31 Last Admin: 02/15/17 05:43 Dose: Not Given Omeprazole (Omeprazole) 20 mg PO DAILY [facility] Last Admin: 02/15/17 09:09 Dose: 20 mg (Azelastine Hcl [ Astepro] 2 Inhalation)Own Med 2 each RHIANNON BID [facility] Sodium Chloride (Saline Flush) 10 ml FLUSH ASDIRECTED PRN PRN Reason: Keep Vein Open Last Admin: 02/14/17 19:05 Dose: 10 ml Sodium Chloride (Saline Flush) 2.5 ml FLUSH ASDIRECTED PRN PRN Reason: Keep Vein Open Last Admin: 02/14/17 19:05 Dose: 2.5 ml *Q Meaningful Use (DIS) - VTE *Q VTE Criteria *Q: - Stroke *Q Stroke Criteria *Q: - AMI *Q AMI Criteria *Q: - Free Text/Narrative Note: Dr. Lucía King MD notes: I examined this patient on the day of this note. I reviewed her lab testing. I agree with Dr. Dutton's assessment and plan.
== END 2017-02-15 13:20 | disposition home or self-care (01) ==
LOC: MW.ED 18:29 → MW.MS 21:04
PROVIDERS: ADMIT Family Medicine; ATTEND Family Medicine
DX: R07.89 Other chest pain (principal); J45.40 Moderate persistent asthma, uncomplicated; K21.9 Gastro-esophageal reflux disease without esophagitis; G47.30 Sleep apnea, unspecified; F32.9 Major depressive disorder, single episode, unspecified; Z88.8 Allergy status to other drugs, medicaments and biological substances; Z91.048 Other nonmedicinal substance allergy status; Z79.51 Long term (current) use of inhaled steroids; Z79.899 Other long term (current) drug therapy; Z82.49 Family history of ischemic heart disease and other diseases of the circulatory system
CPT/HCPCS: 36415; 71010; 80048; 80053; 81001; 81025; 82150; 83690; 84484; 85025; 93005; 96374; 96375; 99285; A9270; G0378; J1885

== ENCOUNTER 2017-05-14 08:36 | Emergency (ER) | payer OTHER, BC ==
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
[2017-05-14 13:41] VITALS: BP 172/94
== END 2017-05-14 09:59 | disposition home or self-care (01) ==
LOC: MW.ED 08:36
DX: S60.222A Contusion of left hand, initial encounter (principal); S80.211A Abrasion, right knee, initial encounter; S50.312A Abrasion of left elbow, initial encounter; J45.909 Unspecified asthma, uncomplicated; K21.9 Gastro-esophageal reflux disease without esophagitis; F32.9 Major depressive disorder, single episode, unspecified; Z79.899 Other long term (current) drug therapy; Z88.8 Allergy status to other drugs, medicaments and biological substances; Z91.048 Other nonmedicinal substance allergy status; V89.2XXA Person injured in unspecified motor-vehicle accident, traffic, initial encounter; Y92.410 Unspecified street and highway as the place of occurrence of the external cause
CPT/HCPCS: 73070; 73120; 73562; 99284; G0390; 99283

== ENCOUNTER 2017-12-10 14:36 | Emergency (ER) | payer OTHER ==
[2017-12-10] MEDS ORDERED: Sodium Chloride 0.9% 2.5 ML Syringe FLUSH PRN (15:04)
[2017-12-10] MEDS ORDERED: Sodium Chloride 0.9% 10 ML Syringe FLUSH PRN (15:04)
[2017-12-10] MEDS ORDERED: Sodium Chloride 0.9% 1,000 ML IV ONE (15:04)
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
--- NOTE | 2017-12-10 15:41 | CR ---
EXAMINATION: Portable chest radiograph. HISTORY: Shortness of breath. FINDINGS: The trachea is midline. The cardiomediastinal silhouette is within normal limits. No pulmonary infilt rates, effusions or pneumothorax. Osseous structures appear unremarkable. IMPRESSION: No acute cardiopulmonary process.
[2017-12-10 16:18] LABS: CHLORIDE,CL 104 mmol/L (98-107); SODIUM,NA 139 mmol/L (136-145)
[2017-12-10 17:17] VITALS: BP 142/88
== END 2017-12-10 17:15 | disposition home or self-care (01) ==
LOC: MW.ED 14:36
DX: R00.1 Bradycardia, unspecified (principal); K21.9 Gastro-esophageal reflux disease without esophagitis; J45.909 Unspecified asthma, uncomplicated; Z79.899 Other long term (current) drug therapy; F32.9 Major depressive disorder, single episode, unspecified; E66.9 Obesity, unspecified; Z88.8 Allergy status to other drugs, medicaments and biological substances
CPT/HCPCS: 36415; 71045; 80053; 81001; 81025; 84443; 84484; 85025; 93005; 96360; 99285; J7040; 99284

== ENCOUNTER 2018-09-01 15:23 | Emergency (ER) | payer BC, OTHER ==
--- NOTE | 2018-09-01 15:27 | EDM.PDOC ---
ED HPI GENERAL MEDICAL PROBLEM - General Stated Complaint: TROUBLE BREATHING Time Seen by Provider: 09/01/18 15:27 Source of Information: Reports: Patient - History of Present Illness INITIAL COMMENTS - FREE TEXT/NARRATIVE: HISTORY AND PHYSICAL: History of present illness: [Patient cut assessment presents with wheeze shortness breath she states feels as if her throat is closing however she speaks clearly in full sentences and has no stridor Does have anterior lymph node swelling that is tender and harsh cough she is on Levaquin day 3, she also states her hands itch which may allude to allergic reaction however has no oral pharyngeal edema no tongue or lip swelling She has had her she cough for 2 weeks and mild sinus tenderness Currently no fever nausea vomiting chills sweats no worse voice He has taken Benadryl 50 mg approximately 30 minutes prior to arrival ] Review of systems: As per history of present illness and below otherwise all systems reviewed and negative. Past medical history: As per history of present illness and as reviewed below otherwise noncontributory. Surgical history: As per history of present illness and as reviewed below otherwise noncontributory. Social history: No reported history of drug or alcohol abuse. Family history: As per history of present illness and as reviewed below otherwise noncontributory. Physical exam: HEENT: Atraumatic, normocephalic, pupils reactive, negative for conjunctival pallor or scleral icterus, mucous membranes moist, throat clear, neck supple, nontender, trachea midline.Mild sinus tenderness no meningeal sign no stridor no oral pharyngeal edema lip swelling or tongue swelling Lungs: Clear to auscultation, breath sounds equal bilaterally, chest nontender. O's DuoNeb Heart: S1S2, regular, negative for clicks, rubs, or JVD. Abdomen: Soft, nondistended, nontender. Negative for masses or hepatosplenomegaly. Negative for costovertebral tenderness. Pelvis: Stable nontender. Genitourinary: Deferred. Rectal: Deferred. Extremities: Atraumatic, negative for cords or calf pain. Neurovascular unremarkable. Neuro: Awake, alert, oriented. Cranial nerves II through XII unremarkable. Cerebellum unremarkable. Motor and sensory unremarkable throughout. Exam nonfocal. Diagnostics: Influenza Chest 2 views ] Therapeutics: [] DuoNeb Famotidine Benadryl held as patient took some prior to arrival Solu-Medrol 125 mg IM Stop Levaquin Cefdinir 300 by mouth twice a day #20 no refill DuoNeb's Medrol Dosepak Benadryl and Zantac [id number] when necessary Impression: possible allergic reaction Mild sinusitis Asthma ] Definitive disposition and diagnosis as appropriate pending reevaluation and review of above. - Related Data Allergies Allergy/AdvReac Type Severity Reaction Status Date / Time fluoxetine [From [facility]] Allergy Hives Verified 12/10/17 14:58 grass pollen Allergy Shortness Verified 12/10/17 14:58 of Breath weed pollen Allergy Shortness Verified 12/10/17 14:58 of Breath trees Allergy Shortness Uncoded 05/14/17 09:09 of Breath Home Meds: Home Meds Albuterol [IJD: Ventolin HFA] 2 puff INH Q4H PRN 07/15/16 [History] Azelastine HCl [Astepro] 2 inhalation RHIANNON BID 07/15/16 [History] Budesonide/Formoterol Fumarate [Symbicort 160-4.5 Mcg Inhaler] 2 puff IH BID 07/31 [History] Cetirizine HCl [Zyrtec] 10 mg PO BEDTIME 07/15/16 [History] Montelukast [Singulair] 10 mg PO BEDTIME 07/15/16 [History] Allergy Shot WEEKLY 02/14/17 [History] Esomeprazole [NexIUM] 40 mg DAILY 02/14/17 [History] Fluticasone Propionate [Flonase] 1 spr NASBOTH BID 02/14/17 [History] Nitroglycerin [Nitrostat] 0.3 mg SL ASDIRECTED PRN #10 tab.subl 02/15/17 [Rx] Omeprazole 20 mg PO DAILY #30 cap.cr 02/15/17 [Rx] Past Medical History HEENT History: Reports: Allergic Rhinitis, Other (See Below) Other HEENT History: Rhinitis Cardiovascular History: Reports: None Respiratory History: Reports: Asthma, Bronchitis, Recurrent, Sleep Apnea Gastrointestinal History: Reports: GERD Other Gastrointestinal History: acid reflux Genitourinary History: Reports: None 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 Musculoskeletal History: Reports: None Other Musculoskeletal History: spinal stenosis Neurological History: Reports: Head Trauma Psychiatric History: Reports: Depression Endocrine/Metabolic History: Reports: Obesity/BMI 30+ Hematologic History: Reports: None Immunologic History: Reports: None Oncologic (Cancer) History: Reports: None Dermatologic History: Reports: None - Infectious Disease History Infectious Disease History: Reports: Chicken Pox - Past Surgical History Head Surgeries/Procedures: Reports: None Social & Family History - Family History Family Medical History: Noncontributory Cardiac: Reports: CAD, [place] Respiratory: Reports: COPD GI: Reports: Colon Polyps OBGYN: Reports: None Psychiatric: Reports: Anxiety, Depression Endocrine/Metabolic: Reports: None Immunologic: Reports: None - Caffeine Use Caffeine Use: Reports: Coffee Caffeine Use Comment: 3 cups a day ED ROS GENERAL - Review of Systems Review Of Systems: See Below ED EXAM, GENERAL - Physical Exam Exam: See Below Course - Orders/Labs/Meds Orders: Active Orders 24 hr Category Date Time Status RT Aerosol Therapy [RC] ASDIRECTED Care 09/01/18 15:39 Active Meds: Medications Discontinued Medications Generic Name Dose Route Start Last Admin Trade Name Freq PRN Reason Stop Dose Admin Albuterol/Ipratropium 3 ml 09/01/18 15:39 09/01/18 15:52 Duoneb 3.0-0.5 Mg/3 Ml NEB 09/01/18 15:40 3 ml ONETIME ONE Administration Diphenhydramine HCl 50 mg 09/01/18 15:28 09/01/18 15:55 Benadryl PO 09/01/18 15:29 Not Given ONETIME ONE Famotidine 20 mg 09/01/18 15:28 09/01/18 15:52 Pepcid PO 09/01/18 15:29 20 mg ONETIME ONE Administration Methylprednisolone Sodium Succinate 125 mg 09/01/18 15:28 09/01/18 15:52 Solu-Medrol IM 09/01/18 15:29 125 mg ONETIME ONE Administration Departure - Departure Time of Disposition: 17:01 Disposition: Home, Self-Care 01 Condition: Good Clinical Impression: Pulmonary infiltrate on chest x-ray, Asthma exacerbation, Allergic reaction Sinusitis Qualifiers: Sinusitis location: unspecified location Chronicity: acute Recurrence: not specified as recurrent Qualified Code(s): J01.90 - Acute sinusitis, unspecified - Discharge Information Referrals: PCP,Unknown [Primary Care Provider] - Additional Instructions: The following information is given to patients seen in the emergency department who are being discharged to home. This information is to outline your options for follow-up care. We provide all patients seen in our emergency department with a follow-up referral. The need for follow-up, as well as the timing and circumstances, are variable depending upon the specifics of your emergency department visit. If you don't have a primary care physician on staff, we will provide you with a referral. We always advise you to contact your personal physician following an emergency department visit to inform them of the circumstance of the visit and for follow-up with them and/or the need for any referrals to a consulting specialist. The emergency department will also refer you to a specialist when appropriate. This referral assures that you have the opportunity for follow-up care with a specialist. All of these measure are taken in an effort to provide you with optimal care, which includes your follow-up. Under all circumstances we always encourage you to contact your private physician who remains a resource for coordinating your care. When calling for follow-up care, please make the office aware that this follow-up is from your recent emergency room visit. If for any reason you are refused follow-up, please contact the [facility] emergency department at and asked to speak to the emergency department charge nurse. - My Orders Last 24 Hours: My Active Orders 09/01/18 15:39 RT Aerosol Therapy [RC] ASDIRECTED - Assessment/Plan Last 24 Hours: My Active Orders 09/01/18 15:39 RT Aerosol Therapy [RC] ASDIRECTED
[2018-09-01] MEDS ORDERED: Famotidine 20 MG Tab PO ONE (15:28)
[2018-09-01] MEDS ORDERED: methylPREDNISolone Sodium Succinate 125 MG/2 ML SDV IM ONE (15:28)
[2018-09-01] MEDS ORDERED: Albuterol/Ipratropium 3.0-0.5 MG/3 ML Neb Soln NEB ONE (15:39)
[2018-09-01] MEDS: diphenhydrAMINE 50 MG Cap PO ONE ×2 (15:52→15:55)
--- NOTE | 2018-09-01 16:44 | CR ---
EXAMINATION: Two-view chest (PA and Lateral views). HISTORY: Shortness of breath. FINDINGS: The trachea is midline. The cardiomediastinal silhouette is within normal limits. No pulmonary infiltrates, effusions or pneumothorax. Osseous structures appear unremarkable. IMPRESSION: No acute cardiopulmonary process.
[2018-09-01 17:16] VITALS: BP 136/83
== END 2018-09-01 17:18 | disposition home or self-care (01) ==
LOC: MW.ED 15:23
DX: T78.40XA Allergy, unspecified, initial encounter (principal); J45.901 Unspecified asthma with (acute) exacerbation; J01.90 Acute sinusitis, unspecified; R91.8 Other nonspecific abnormal finding of lung field; E66.9 Obesity, unspecified; K21.9 Gastro-esophageal reflux disease without esophagitis; Z79.899 Other long term (current) drug therapy; Z91.018 Allergy to other foods; Z88.8 Allergy status to other drugs, medicaments and biological substances
CPT/HCPCS: 71046; 87804; 94640; 96372; 99284; A9270; J2930; 99283; J7620-GY

== ENCOUNTER 2018-09-02 21:11 | Emergency (ER) | payer OTHER ==
--- NOTE | 2018-09-02 21:49 | EDM.PDOC ---
ED HPI GENERAL MEDICAL PROBLEM - General Chief Complaint: ENT Problem Stated Complaint: PT HAS SWOLLEN NECK Time Seen by Provider: 09/02/18 21:35 Source of Information: Reports: Patient, Other (Provider from previous visit) History Limitations: Reports: No Limitations - History of Present Illness INITIAL COMMENTS - FREE TEXT/NARRATIVE: Since to the emergency room reporting throat fullness with eating. The patient states that over the last 48 hours she has been seen a couple of times for cough and pneumonia. Last evening she had her antibiotics changed and she was given a Medrol Dosepak along with ranitidine. She had swollen glands in her neck last night but now today she has fullness in her throat when she swallows it seems to get better after eating. She denies any problems with breathing and states that her "lungs feel better". throat Pain Score (Numeric/FACES): 5 - Related Data Allergies Allergy/AdvReac Type Severity Reaction Status Date / Time doxycycline Allergy Hives Verified 09/02/18 21:24 fluoxetine [From Prozac] Allergy Hives Verified 09/02/18 21:23 grass pollen Allergy Shortness Verified 09/02/18 21:23 of Breath levofloxacin [From Levaquin] Allergy Wheezing Verified 09/02/18 21:24 weed pollen Allergy Shortness Verified 09/02/18 21:23 of Breath trees Allergy Shortness Uncoded 09/02/18 21:23 of Breath Home Meds: Home Meds Albuterol [IJD: Ventolin HFA] 2 puff INH Q4H PRN 07/15/16 [History] Azelastine HCl [Astepro] 2 inhalation RHIANNON BID 07/15/16 [History] Budesonide/Formoterol Fumarate [Symbicort 160-4.5 Mcg Inhaler] 2 puff IH BID 07/31 [History] Cetirizine HCl [Zyrtec] 10 mg PO BEDTIME 07/15/16 [History] Montelukast [Singulair] 10 mg PO BEDTIME 07/15/16 [History] Allergy Shot WEEKLY 02/14/17 [History] Fluticasone Propionate [Flonase] 1 spr NASBOTH BID 02/14/17 [History] Nitroglycerin [Nitrostat] 0.3 mg SL ASDIRECTED PRN #10 tab.subl 08/04/17 [Rx] Omeprazole 20 mg PO DAILY #30 cap.cr 02/15/17 [Rx] Cefdinir 09/02/18 [History] Omeprazole 20 mg PO DAILY 09/02/18 [History] Ranitidine [Zantac] 09/02/18 [History] diphenhydrAMINE [Benadryl] 50 mg PO BID PRN 09/02/18 [History] methylPREDNISolone [Medrol] 09/02/18 [History] Past Medical History HEENT History: Reports: Allergic Rhinitis, Other (See Below) Other HEENT History: Rhinitis Cardiovascular History: Reports: None Respiratory History: Reports: Asthma, Bronchitis, Recurrent, Sleep Apnea Gastrointestinal History: Reports: GERD Other Gastrointestinal History: acid reflux Genitourinary History: Reports: None 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 Musculoskeletal History: Reports: None Other Musculoskeletal History: spinal stenosis Neurological History: Reports: Head Trauma Psychiatric History: Reports: Depression Endocrine/Metabolic History: Reports: Obesity/BMI 30+ Hematologic History: Reports: None Immunologic History: Reports: None Oncologic (Cancer) History: Reports: None Dermatologic History: Reports: None - Infectious Disease History Infectious Disease History: Reports: Chicken Pox - Past Surgical History Head Surgeries/Procedures: Reports: None Social & Family History - Family History Family Medical History: Noncontributory Cardiac: Reports: CAD, [place] Respiratory: Reports: COPD GI: Reports: Colon Polyps OBGYN: Reports: None Psychiatric: Reports: Anxiety, Depression Endocrine/Metabolic: Reports: None Immunologic: Reports: None - Tobacco Use Smoking Status *Q: Never Smoker Second Hand Smoke Exposure: Yes - Caffeine Use Caffeine Use: Reports: Coffee Caffeine Use Comment: 3 cups a day - Recreational Drug Use Recreational Drug Use: No ED ROS ENT - Review of Systems Review Of Systems: ROS reveals no pertinent complaints other than HPI. ED EXAM, ENT - Physical Exam Exam: See Below Exam Limited By: No Limitations General Appearance: Alert, No Apparent Distress Ears: Normal External Exam, Normal TMs Nose: Normal Inspection Mouth/Throat: Normal Inspection, Normal Oropharynx Head: Atraumatic, Normocephalic Neck: Normal Inspection, Supple, Lymphadenopathy (L), Lymphadenopathy (R) Respiratory/Chest: No Respiratory Distress, Lungs Clear, Normal Breath Sounds, Other (Frequent harsh cough in exam room) Cardiovascular: Regular Rate, Rhythm, No Murmur Neurological: Alert, Oriented, No Motor/Sensory Deficits Psychiatric: Normal Affect, Normal Mood Skin: Warm, Dry, Intact, Normal Color, No Rash Lymphatic: No Adenopathy Course - Vital Signs Last Recorded V/S: Last Vital Signs Temp 36.0 C 09/02/18 21:19 Pulse 97 09/02/18 21:19 Resp 20 09/02/18 21:19 BP 173/101 H 09/02/18 21:19 Pulse Ox Departure - Departure Time of Disposition: 21:46 Disposition: Home, Self-Care 01 Condition: Good Clinical Impression: Dysphagia Qualifiers: Dysphagia type: oropharyngeal phase Qualified Code(s): R13.12 - Dysphagia, oropharyngeal phase - Discharge Information Referrals: Bo Patrick MD [Primary Care Provider] - Additional Instructions: 1. Make an appointment with your primary care provider tomorrow 2. Suck on lemon drops to aide in salivary stone passage if that is your problem 3. Finish your antibiotics and steroids as directed.
[2018-09-02 22:19] VITALS: BP 170/72
== END 2018-09-02 22:00 | disposition home or self-care (01) ==
LOC: MW.ED 21:11
DX: R13.12 Dysphagia, oropharyngeal phase (principal); K21.9 Gastro-esophageal reflux disease without esophagitis; J45.909 Unspecified asthma, uncomplicated; Z88.1 Allergy status to other antibiotic agents; Z88.8 Allergy status to other drugs, medicaments and biological substances; Z79.899 Other long term (current) drug therapy; Z91.09 Other allergy status, other than to drugs and biological substances
CPT/HCPCS: 99283

== ENCOUNTER 2018-09-03 13:45 | Emergency (ER) | payer OTHER ==
--- NOTE | 2018-09-03 14:47 | EDM.PDOC ---
ED HPI GENERAL MEDICAL PROBLEM - General Chief Complaint: ENT Problem Stated Complaint: DIFFICULTY SWALLOWING Time Seen by Provider: 09/03/18 14:00 - History of Present Illness INITIAL COMMENTS - FREE TEXT/NARRATIVE: HISTORY AND PHYSICAL: History of present illness: Patient's a 47-year-old white female who presents with sialoadenitis who recently was evaluated had a CT of her neck that was reviewed by myself with no evidence of abscess salivary duct stone or any other finding that would be inconsistent with sialoadenitis. Her airway was patent and remained such clinically. Patient is currently on antibiotics pain medication and using lemon drops Review of systems: As per history of present illness and below otherwise all systems reviewed and negative. Past medical history: As per history of present illness and as reviewed below otherwise noncontributory. Surgical history: As per history of present illness and as reviewed below otherwise noncontributory. Social history: No reported history of drug or alcohol abuse. Family history: As per history of present illness and as reviewed below otherwise noncontributory. Physical exam: HEENT: Atraumatic, normocephalic, pupils reactive, negative for conjunctival pallor or scleral icterus, mucous membranes moist, throat clear, neck supple, nontender, trachea midline. Patient has significant tendinopathy of her left parotid and submandibular gland. There is no erythema there is tenderness to palpation Lungs: Clear to auscultation, breath sounds equal bilaterally, chest nontender. Heart: S1S2, regular, negative for clicks, rubs, or JVD. Abdomen: Soft, nondistended, nontender. Negative for masses or hepatosplenomegaly. Negative for costovertebral tenderness. Pelvis: Stable nontender. Genitourinary: Deferred. Rectal: Deferred. Extremities: Atraumatic, negative for cords or calf pain. Neurovascular unremarkable. Neuro: Awake, alert, oriented. Cranial nerves II through XII unremarkable. Cerebellum unremarkable. Motor and sensory unremarkable throughout. Exam nonfocal. Diagnostics: CBC chemistry was reviewed that was done earlier today per patient's request IgM and IgG mumps serology was sent patient has been immunized and had complete childhood immunizations. Therapeutics: None Impression: #1 sialoadenitis Definitive disposition and diagnosis as appropriate pending reevaluation and review of above. throat Pain Score (Numeric/FACES): 8 - Related Data Allergies Allergy/AdvReac Type Severity Reaction Status Date / Time doxycycline Allergy Hives Verified 09/03/18 14:00 fluoxetine [From Prozac] Allergy Hives Verified 09/03/18 14:00 grass pollen Allergy Shortness Verified 09/03/18 14:00 of Breath levofloxacin [From Levaquin] Allergy Wheezing Verified 09/03/18 14:00 weed pollen Allergy Shortness Verified 09/03/18 14:00 of Breath trees Allergy Shortness Uncoded 09/02/18 21:23 of Breath Home Meds: Home Meds Albuterol [IJD: Ventolin HFA] 2 puff INH Q4H PRN 07/15/16 [History] Azelastine HCl [Astepro] 2 inhalation RHIANNON BID 07/15/16 [History] Budesonide/Formoterol Fumarate [Symbicort 160-4.5 Mcg Inhaler] 2 puff IH BID 07/31 [History] Cetirizine HCl [Zyrtec] 10 mg PO BEDTIME 07/15/16 [History] Montelukast [Singulair] 10 mg PO BEDTIME 07/15/16 [History] Allergy Shot 1 dose INJECT WEEKLY 02/14/17 [History] Fluticasone Propionate [Flonase] 1 spr NASBOTH BID 02/14/17 [History] Nitroglycerin [Nitrostat] 0.3 mg SL ASDIRECTED PRN #10 tab.subl 02/15/17 [Rx] Omeprazole 20 mg PO DAILY #30 cap.cr 02/15/17 [Rx] Cefdinir 1 tab PO DAILY 09/02/18 [History] Omeprazole 20 mg PO DAILY 09/02/18 [History] Ranitidine [Zantac] 1 tab PO DAILY 09/02/18 [History] diphenhydrAMINE [Benadryl] 50 mg PO BID PRN 09/02/18 [History] methylPREDNISolone [Medrol] 1 dose PO ASDIRECTED 09/02/18 [History] Past Medical History HEENT History: Reports: Allergic Rhinitis, Other (See Below) Other HEENT History: Rhinitis Cardiovascular History: Reports: None Respiratory History: Reports: Asthma, Bronchitis, Recurrent, Sleep Apnea Gastrointestinal History: Reports: GERD Other Gastrointestinal History: acid reflux Genitourinary History: Reports: None 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 Musculoskeletal History: Reports: None Other Musculoskeletal History: spinal stenosis Neurological History: Reports: Head Trauma Psychiatric History: Reports: Depression Endocrine/Metabolic History: Reports: Obesity/BMI 30+ Hematologic History: Reports: None Immunologic History: Reports: None Oncologic (Cancer) History: Reports: None Dermatologic History: Reports: None - Infectious Disease History Infectious Disease History: Reports: Chicken Pox - Past Surgical History Head Surgeries/Procedures: Reports: None HEENT Surgical History: Reports: None Cardiovascular Surgical History: Reports: None Respiratory Surgical History: Reports: None GI Surgical History: Reports: None Female Surgical History: Reports: None Endocrine Surgical History: Reports: None Neurological Surgical History: Reports: None Musculoskeletal Surgical History: Reports: None Oncologic Surgical History: Reports: None Dermatological Surgical History: Reports: None Social & Family History - Family History Family Medical History: Noncontributory Cardiac: Reports: CAD, [place] Respiratory: Reports: COPD GI: Reports: Colon Polyps OBGYN: Reports: None Psychiatric: Reports: Anxiety, Depression Endocrine/Metabolic: Reports: None Immunologic: Reports: None - Tobacco Use Smoking Status *Q: Never Smoker Second Hand Smoke Exposure: No - Caffeine Use Caffeine Use: Reports: Coffee Caffeine Use Comment: 3 cups a day - Recreational Drug Use Recreational Drug Use: No ED ROS GENERAL - Review of Systems Review Of Systems: ROS reveals no pertinent complaints other than HPI. ED EXAM, GENERAL - Physical Exam Exam: See Below (See dictation) Course - Vital Signs Last Recorded V/S: Last Vital Signs Temp 35.9 C 09/03/18 14:01 Pulse 88 09/03/18 14:01 Resp 18 09/03/18 14:01 BP 164/94 H 09/03/18 14:01 Pulse Ox 95 09/03/18 14:01 - Orders/Labs/Meds Orders: Active Orders 24 hr Category Date Time Status MUMPS ABS, IGG [REF] Stat Lab 09/03/18 14:50 Received MUMPS ANTIBODIES, IGM [REF] Stat Lab 09/03/18 14:50 Received Meds: Medications Discontinued Medications Generic Name Dose Route Start Last Admin Trade Name Freq PRN Reason Stop Dose Admin Hydrocodone Bitart/Acetaminophen 1 tab 09/03/18 15:28 09/03/18 15:36 [place] 325-10 Mg PO 09/03/18 15:29 1 tab ONETIME ONE Administration Departure - Departure Time of Disposition: 15:39 Disposition: Home, Self-Care 01 Condition: Good Clinical Impression: Sialoadenitis - Discharge Information Referrals: PCP,Unknown [Primary Care Provider] - Forms: ED Department Discharge Additional Instructions: The following information is given to patients seen in the emergency department who are being discharged to home. This information is to outline your options for follow-up care. We provide all patients seen in our emergency department with a follow-up referral. The need for follow-up, as well as the timing and circumstances, are variable depending upon the specifics of your emergency department visit. If you don't have a primary care physician on staff, we will provide you with a referral. We always advise you to contact your personal physician following an emergency department visit to inform them of the circumstance of the visit and for follow-up with them and/or the need for any referrals to a consulting specialist. The emergency department will also refer you to a specialist when appropriate. This referral assures that you have the opportunity for followup care with a specialist. All of these measure are taken in an effort to provide you with optimal care, which includes your followup. Under all circumstances we always encourage you to contact your private physician who remains a resource for coordinating your care. When calling for followup care, please make the office aware that this follow-up is from your recent emergency room visit. If for any reason you are refused follow-up, please contact the [facility] emergency department at and asked to speak to the emergency department charge nurse. Continue current medications as prescribed follow-up primary medical doctor as needed as discussed and return as needed as discussed - My Orders Last 24 Hours: My Active Orders 09/03/18 14:50 MUMPS ABS, IGG [REF] Stat MUMPS ANTIBODIES, IGM [REF] Stat - Assessment/Plan Last 24 Hours: My Active Orders 09/03/18 14:50 MUMPS ABS, IGG [REF] Stat MUMPS ANTIBODIES, IGM [REF] Stat
[2018-09-03] MEDS ORDERED: Acetaminophen/HYDROcodone 325-10 MG Tab PO ONE (15:28)
[2018-09-03 18:22] VITALS: BP 188/96
== END 2018-09-03 16:03 | disposition home or self-care (01) ==
LOC: MW.ED 13:45
DX: K11.20 Sialoadenitis, unspecified (principal); E66.9 Obesity, unspecified; Z88.8 Allergy status to other drugs, medicaments and biological substances; Z91.048 Other nonmedicinal substance allergy status; Z79.899 Other long term (current) drug therapy
CPT/HCPCS: 86735; 99283; A9270

== ENCOUNTER 2022-04-12 15:31 | Emergency (ER) | payer OTHER ==
[2022-04-12 15:43] VITALS: BP 142/96; PULSE 105
[2022-04-12] MEDS: Ketorolac 30 MG/ML SDV IVPUSH ONE (16:56)
== END 2022-04-12 18:13 | disposition home or self-care (01) ==
LOC: MW.ED 15:31
DX: M17.12 Unilateral primary osteoarthritis, left knee (principal); F32.A Depression, unspecified; K21.9 Gastro-esophageal reflux disease without esophagitis; E66.9 Obesity, unspecified; Z68.41 Body mass index [BMI] 40.0-44.9, adult; Z79.899 Other long term (current) drug therapy; Z91.048 Other nonmedicinal substance allergy status; Z88.1 Allergy status to other antibiotic agents
CPT/HCPCS: 73562; 96374; 99283; J1885